=== PATIENT | female | born 1960 | race Caucasian/White ===

== ENCOUNTER 2016-06-13 16:22 | Emergency (ER) | payer OTHER ==
[2016-06-13 16:45] LABS: Hematocrit 40.3 % (37.0-47.0); Hemoglobin 13.9 gm/dL (12.5-16.0); Mean Corpuscular Hgb Conc 34.5 g/dl (32-36); Mean Platelet Volume 9.5 fl (6.0-9.5); Neutrophil # 7.3 K/mm3 (1.3-6.0); Platelet Count 265 K/mm3 (150-450); Red Blood Count 4.48 M/mm3 (4.2-5.4); Red Cell Distribution Width 14.9 % (11.5-14.0); White Blood Count 11.5 K/mm3 (4.0-10.5)
[2016-06-13] MEDS ORDERED: ASPIRIN 81 MG TAB.CHEW PO ONE (16:47)
[2016-06-13] MEDS: NITROGLYCERIN 0.4 MG/TAB BTL SL PRN ×3 (16:52→17:18)
[2016-06-13] MEDS ORDERED: ASPIRIN 81 MG TAB.CHEW ONE (16:53)
[2016-06-13 17:04] LABS: ALT 23 U/L (19-67); AST 17 U/L (0-48); Alkaline Phosphatase * 95 U/L (50-170); Anion Gap 10.9 mmol/L (6.8-13.8); BUN/Creatinine Ratio 21.4 (9.0-21.6); Bilirubin, Total 0.4 mg/dL (0.0-1.1); Blood Urea Nitrogen 15 mg/dL (3-23); Calcium * 9.3 mg/dL (7.9-10.9); Carbon Dioxide 28.4 mmol/L (24-32.6); Chloride 98 mmol/L (97-106); Glucose * 95 mg/dL (70-110); Potassium 3.3 mmol/L (3.4-4.6); Sodium 134 mmol/L (132-142); Total Protein 7.4 gm/dL (6.2-8.2); Troponin I Less than 0.017 ng/ml (0.00-0.10)
[2016-06-13 17:07] LABS: INR 1.01 INR (0.90-1.10); Partial Thrombolplastin Time 26.4 Seconds (24-32); Prothrombin Time (Patient) 10.5 Seconds (9.4-11.4)
--- OUTSIDE RECORDS SUMMARY | 2016-06-13 17:07 | XMS REPORT | Continuity of Care Document ---
:1960 Author Organization [facility] ([facility]) [place] [address] Phone [phone] Care Team Providers Name Role Phone Provider, No-Primary Care Primary Care Provider Unavailable Source Comments This disclosure is being made pursuant to the Care Everywhere program, applicable federal and state laws, and may not contain all informaitonavailable regarding this patient.[facility] ([facility]) Active Allergies and Adverse Reactions Not on File Current Medications Not on file Active Problems Not on file Social History Tobacco Use Types Packs/Day Years Used Date Never Assessed Plan of Care Health Maintenance Due Date Last Done Comments HCV Screening 1960 Hepatitis B Vaccine (1 of 3 - Primary Series) 1960 Tdap Vaccine 1973 Lipid Disorder Screening 1980 MMR Vaccine 1980 Td Vaccine 1980 Cervical Cancer Screening 1992 Mammogram 2002 Colonoscopy 10/13/2012 Influenza Vaccine: Seasonal (#1) 10/07/2015 Results from Last 3 Months Not on file
[2016-06-13] MEDS ORDERED: LORazepam 2 MG/ML DISP.SYRIN IV ONE (17:18)
[2016-06-13] MEDS ORDERED: MAG HYDROX/ALUMINUM HYD/SIMETH 30 ML UDC PO ONE (17:29)
[2016-06-13] MEDS ORDERED: LIDOCAINE HCL 20 ML UDC MM ONE (17:29)
[2016-06-13] MEDS ORDERED: SUCRALFATE 1 G/10 ML UDC PO ONE (17:29)
--- NOTE | 2016-06-13 17:31 | ERNOTE ---
Chest Pain/Cardiac HPI Date of Service: 06/13/16 Chief Complaint: Chest Pain Time Seen by Provider: 06/13/16 16:46 Source: patient Exam Limitations: no limitations Immunizations: IMMUNIZATION HX Immunizations Up to Date Yes History of Influenza Vaccine No Allergies/Adverse Reactions: Allergies scopolamine Allergy (Verified 06/13/16 16:34) Itching Home Medications: HOME MEDICATIONS LORazepam [Ativan] 0.5 mg PO TID PRN #10 tablet 06/13/16 [Last Taken Unknown] Narrative: 55 year old female presenting to the emergency room for chest pain. Patient states that she is a tightness in the middle of her chest and arms are numb. Patient is able to move both of her arms and squeeze is appropriate. States that she had a similar chest pain yesterday when she was in her primary care physician's office and EKG was performed and she was sent home from there. Date (Duration): 06/13/16 Timing: constant Severity/Quality: mild Location: central, epigastric Chest Pain Radiation: arms - states arms are tingly Activities at Onset: emotional stress Modifying Factors - Improves: Absent: nitroglycerin, oxygen, breathing, coughing Nitro Today/Relief: 0.4 mg x 3, provided by ED, no relief Aspirin Treatment Today: 325 mg x 1, provided by ED Associated Symptoms: Absent: headache, dizziness, syncope, cough, shortness of breath, palpitations, nausea, vomiting Prior Chest Pain/Cardiac Workup: Reports: prior chest pain Prior Treatment: Reports: treated by physician - yesterday in his office Review of Systems - Review of Systems Constitutional: Present: no symptoms reported EYE: Present: no symptoms reported ENT: Present: no symptoms reported Respiratory: Present: no symptoms reported. Absent: shortness of breath Cardiology: Present: See HPI, chest pain. Absent: edema Gastrointestinal/Abdominal: Present: no symptoms reported Genitourinary: Present: no symptoms reported Musculoskeletal: Present: no symptoms reported Skin: Present: no symptoms reported Neurological: Present: no symptoms reported Endocrine: Present: no symptoms reported Hematologic/Lymphatic: Present: no symptoms reported Psych: Present: no symptoms reported All Other Systems: All systems neg except as marked - Patient's Past Medical History Patient History - Medical: No pertinent hx Patient History - Cardiac/Respiratory: No pertinent hx Patient History - Cancer: No Hx of Cancer Patient History - Surgical Procedures: , Hysterectomy, Other - Social History Smoking Status: Current every day smoker Have you smoked in the past 12 months: Yes - Immunizations Immunizations Up to Date: Yes History of Influenza Vaccine: No Physical Exam - Physical Exam Narrative: patient appears anxious. describes chest tightness in the middle of her chest. belly is soft and nontender. General Appearance: Present: wd/wn, alert, no apparent distress Eye Exam: Normal inspection: bilateral Ears, Nose, Throat: Present: normal ENT inspection Neck: Present: normal inspection Respiratory: Present: no respiratory distress Cardiovascular/Chest: Present: normal peripheral pulses, tachycardia. Absent: no murmur Peripheral Pulses: N=norm/S=strong/W=weak/B=bound/A=absent: Radial (R): Normal, Radial (L): Normal, Dorsalis-pedis (R): Normal, Dorsalis-pedis (L): Normal Gastrointestinal/Abdominal: Present: normal bowel sounds Back Exam: Present: normal inspection Extremity Exam: Present: normal inspection, normal range of motion, no edema Neurological Exam: Present: alert, oriented, normal mood/affect, no motor/ sensory deficits Skin Exam: Present: normal color Lymphatic Exam: Present: no adenopathy ED Progress - Results and Orders Patient's Lab Results:: I have reviewed the patient's lab results. Results and Orders: cardiac enzyme negative at this time. - Vital Signs Vital Signs: Vital Signs 06/13/16 06/13/16 16:30 16:55 Temperature 36.3 C L Pulse Rate 103 H 105 H Respiratory 12 13 Rate Blood Pressure 147/57 141/87 O2 Sat by Pulse 18 L 93 Oximetry - EKG EKG read: Interp. by me EKG Comments: dr faust interperated - Progress/Reassessment Chief Complaint: Chest Pain Progress:: Improved Plan - Plan Plan: Patient offered IV Ativan for anxiety and refused, she was worried about being able to drive. Departure - Departure Clinical Impression: Anxiety associated with depression Disposition: Home Follow Up Needed Condition: Stable Instructions: Panic Attacks, [id number] Additional Instructions: Continue previous home medications. Return to the emergency room if chest pain returns. Follow-up with your primary care provider on Wednesday. Referrals: Anna Colvin EFFICIENCY ANALYST [Primary Care Provider] - Prescriptions: LORazepam [Ativan] 0.5 mg PO TID PRN #10 tablet PRN Reason: Anxiety
[2016-06-13] MEDS ORDERED: LORazepam 2 MG/ML DISP.SYRIN ONE (18:25)
[2016-06-13 19:17] VITALS: BP 121/84
== END 2016-06-13 20:06 | disposition home or self-care (01) ==
LOC: ER 16:22
DX: F41.8 Other specified anxiety disorders (principal)